=== PATIENT | male | born 1980 | race Caucasian/White ===

== ENCOUNTER 2021-11-13 12:19 | Emergency (ER) | payer OTHER ==
[~2021-11-13] VITALS: Ht 167.6 cm; Wt 81.6 kg
--- NOTE | 2021-11-13 12:24 | NUR ---
Patient to ER bed 03 to gown for evaluation. Side rails up.
[2021-11-13 12:25] VITALS: BP_SYST 147
--- NOTE | 2021-11-13 12:30 | NUR ---
Pt brought by self, A&Ox4, pt presents to ER with possible alcohol intoxication, report received from nancy kuhn stating pt went to their facility to detox but seemed intoxicated pt alert to name and pain, skin pink and warm, cap refill <3, VSS, no N/V noted, respirations even and unlabored, will cont to monitor .
--- NOTE | 2021-11-13 12:50 | NUR ---
Dr Pittman evaluating patient at bedside
--- NOTE | 2021-11-13 13:35 | NUR ---
Pt O2 88%, pt placed on 2L NC at this time
--- NOTE | 2021-11-13 13:52 | NUR ---
Patient's friend at bedside, friend brought patient's phone and placed it in the room.
--- NOTE | 2021-11-13 16:13 | NUR ---
Pt resting in bed at this time, no s/s of distress, no N/V noted
--- NOTE | 2021-11-13 16:43 | NUR ---
Dr Wharton evaluating patien at this time
[2021-11-13] MEDS ORDERED: NACL 0.9% 1,000 ML IV ONE (16:45)
--- NOTE | 2021-11-13 17:22 | NUR ---
Pt incontinent at this time, perineal care completed, will cont to monitor
--- NOTE | 2021-11-13 18:33 | NUR ---
Pt placed on 2L NC due to O2 88%.
--- NOTE | 2021-11-13 18:40 | NUR ---
Pt A&Ox4, O2 95% room air, respirations even and unlabored. will cont to monitor.
--- NOTE | 2021-11-13 18:45 | NUR ---
Per Dr Wharton blood work , UA and EKG is canceled since patient is A&Ox4, at this time.
--- NOTE | 2021-11-13 19:16 | NUR ---
Report given to Ynes CARNEY
[2021-11-13 19:24] VITALS: BP_SYST 135
[2021-11-13 19:26] LABS: BILIRUBIN,URINE NEGATIVE (NEGATIVE); BLOOD, URINE NEGATIVE (NEGATIVE); CLARITY/URINE CLEAR (CLEAR); GLUCOSE,URINE NEGATIVE (NEGATIVE); KETONES,URINE NEGATIVE (NEGATIVE); LEUKOCYTE ESTERASE ,URINE NEGATIVE (NEGATIVE); NITRITE, URINE NEGATIVE (NEGATIVE); PH,URINE 5.5 (5.0-8.0); PROTEIN URINE NEGATIVE (NEGATIVE); UROBILINOGEN,URINE 0.2 (0.2-1.0)
[2021-11-13 19:38] LABS: BARBITURATE, URINE NEGATIVE (NEG <=200); BENZODIAZEPINE, URINE NEGATIVE (NEG <=150); CANNABINOID, URINE NEGATIVE (NEG <=50); COCAINE, URINE NEGATIVE (NEG <=150); METHAMPHETAMINES SCREEN,URINE NEGATIVE (NEG <=500); OPIATE, URINE NEGATIVE (NEG <=100); PHENCYCLIDINE SCREEN,URINE NEGATIVE (NEG <=25); UR TRICYCLIC ANTIDEPRESSANTS NEGATIVE (NEG <=300); URINE AMPHETAMINE NEGATIVE (NEG <=500); URINE METHADONE NEGATIVE (NEG <=200); URINE OXYCODONE SCREEN NEGATIVE (NEG <=100); URINE PROPOXYPHENE SCREEN NEGATIVE (NEG <=300)
[2021-11-13 19:43] LABS: COLOR,URINE STRAW (YELLOW)
== END 2021-11-13 19:24 | disposition home or self-care (01) ==
LOC: SED 12:19
DX: F10.129 Alcohol abuse with intoxication, unspecified (principal); Z79.899 Other long term (current) drug therapy; Y90.6 Blood alcohol level of 120-199 mg/100 ml
CPT/HCPCS: 99285; 96360; 80307; 81003; J7030